=== PATIENT | female | born 1965 | race Caucasian/White ===

== ENCOUNTER 2018-07-24 10:02 | Emergency (ER) | payer MEDICAID ==
[~2018-07-24] VITALS: Ht 162.6 cm; Wt 59.0 kg
[2018-07-24] MEDS ORDERED: OXYC-100 PO (10:06)
[2018-07-24 10:33] LABS: BASOPHILS % 1.3 % (0.0-2.0); EOSINOPHILS % 0.6 % (0.0-5.0); HEMATOCRIT. 39.2 % (36.0-48.0); HEMOGLOBIN. 13.3 g/dL (12.0-16.0); LYMPHOCYTES % 27.4 % (20.0-50.0); MEAN CORPUSCULAR HEMOGLOBIN 32.7 pg (28.0-32.0); MEAN CORPUSCULAR VOLUME 96.6 fL (81.0-99.0); MEAN PLATELET VOLUME 6.8 fl (7.4-10.4); MONOCYTES % 6.6 % (2.0-8.0); NEUTROPHILS % 64.1 % (40.0-76.0); PLATELET 319 x1000/uL (130-400); RED BLOOD CELL COUNT 4.06 mill/uL (4.2-5.4); RED CELL DISTRIBUTION WIDTH 14.1 % (11.6-14.6)
[2018-07-24 10:40] LABS: CHLORIDE 108 mEq/L (98-107)
[2018-07-24 10:45] LABS: PHOSPHORUS 3.4 mg/dL (2.5-4.9)
[2018-07-24] MEDS ORDERED: LIDOCAINE HCL 1% 20ML VIAL (Pyxis) INJ INFIL ONE (11:00)
[2018-07-24] MEDS ORDERED: KETOROLAC 30MG/ML VIAL IV ONE (11:15)
[2018-07-24] MEDS ORDERED: SUMATRIPTAN SUCCINATE 6MG/0.5ML VIAL SUBCUT ONE (11:15)
[2018-07-24] MEDS ORDERED: CYCLOBENZAPRINE 10MG TABLET PO ONE (11:30)
[2018-07-24] MEDS ORDERED: KETOROLAC 15MG/ML VIAL IV NR (14:30)
[2018-07-24 14:45] VITALS: BP 123/71
== END 2018-07-24 14:55 | disposition home or self-care (01) ==
LOC: ER 10:02
DX: R51 Headache (principal); M54.2 Cervicalgia; I10 Essential (primary) hypertension; Z79.899 Other long term (current) drug therapy
CPT/HCPCS: 36415; 70450; 80053; 83735; 84100; 85025; 96372; 96374; 99284; J1885; J3030; J3490

== ENCOUNTER → 2019-08-21 | Outpatient (CLI) | payer MEDICAID ==
[~2019-08-21] VITALS: Ht 167.6 cm; Wt 66.7 kg
[~2019-08-21] MED LIST: OXYC-100 PO
== END | disposition home or self-care (01) ==
LOC: LAB 11:11
PROVIDERS: ATTEND Internal Medicine Gastroenterology
DX: Z01.818 Encounter for other preprocedural examination (principal); Z11.59 Encounter for screening for other viral diseases
CPT/HCPCS: C9803; U0003

== ENCOUNTER 2019-08-25 10:08 | Day surgery (SDC) | payer MEDICAID ==
[~2019-08-25] VITALS: Ht 167.6 cm; Wt 66.7 kg
[~2019-08-25 10:08] MED LIST changes: +ALBU6.7H9 IH; +CELE100C PO; +CLON0.5T PO; +ESCI20TA PO; +GABA800T97 PO; +OMEP20TA15 PO; +OXYC-105 PO
[2019-08-25 11:11] LABS: BASOPHILS % 0.7 % (0.0-2.0); EOSINOPHILS % 0.7 % (0.0-5.0); HEMATOCRIT. 36.6 % (36.0-48.0); HEMOGLOBIN. 12.5 g/dL (12.0-16.0); LYMPHOCYTES % 16.2 % (20.0-50.0); MEAN CORPUSCULAR HEMOGLOBIN 33.1 pg (28.0-32.0); MEAN CORPUSCULAR VOLUME 96.8 fL (81.0-99.0); MEAN PLATELET VOLUME 7.3 fl (7.4-10.4); MONOCYTES % 4.4 % (2.0-8.0); PLATELET 288 x1000/uL (130-400); RED BLOOD CELL COUNT 3.78 mill/uL (4.2-5.4); RED CELL DISTRIBUTION WIDTH 13.5 % (11.6-14.6)
[2019-08-25 11:19] LABS: CHLORIDE 109 mEq/L (98-107)
[2019-08-25] MEDS ORDERED: LACTATED RINGERS 1,000 ML IV SCH (11:30)
[2019-08-25] MEDS ORDERED: MIDAZOLAM HCL 2 MG/2 ML VIAL ONE (11:54)
[2019-08-25] MEDS ORDERED: PROPOFOL 200MG/20ML VIAL IV ONE (11:54)
[2019-08-25] MEDS ORDERED: LIDOCAINE HCL/PF 1% 10 MG/ML 5ML VIAL ONE (11:55)
[2019-08-25] MEDS ORDERED: BUSP15TA3 PO (12:04)
[2019-08-25] MEDS ORDERED: TAMS-11 PO (12:04)
[2019-08-25] MEDS ORDERED: TRAZ-251 PO (12:04)
[2019-08-25] MEDS ORDERED: METH-612 PO (12:04)
[2019-08-25] MEDS ORDERED: DIPH1TAB24 PO (12:06)
== END 2019-08-25 13:45 | disposition home or self-care (01) ==
LOC: OR 10:08
PROVIDERS: ATTEND Internal Medicine Gastroenterology
DX: R10.13 Epigastric pain (principal); K21.9 Gastro-esophageal reflux disease without esophagitis; R11.2 Nausea with vomiting, unspecified; K44.9 Diaphragmatic hernia without obstruction or gangrene; K29.50 Unspecified chronic gastritis without bleeding; B96.81 Helicobacter pylori [H. pylori] as the cause of diseases classified elsewhere; K31.89 Other diseases of stomach and duodenum; F41.9 Anxiety disorder, unspecified; F32.9 Major depressive disorder, single episode, unspecified; Z79.899 Other long term (current) drug therapy; Z98.890 Other specified postprocedural states; Z88.0 Allergy status to penicillin; Z88.8 Allergy status to other drugs, medicaments and biological substances
CPT/HCPCS: 36415; 43239; 80048; 85025; 88305; 88313; 93005; J2250; J2704; J3490